=== PATIENT | female | born 1980 | race Caucasian/White ===

== ENCOUNTER 2021-06-02 00:16 | Emergency (ER) | payer MEDICAID, SELFPAY ==
[2021-06-02 00:21] VITALS: BP 125/63; PULSE 86; RESP 16; TEMP 36.6; O2SAT 100; BMI 22.1
--- NOTE | 2021-06-02 00:46 | ED.HA ---
HPI - Headache General Chief Complaint: Headache Stated Complaint: Headache/Nausea Time Seen by Provider: 06/02/21 00:30 Source: patient Mode of arrival: ambulatory Limitations: no limitations History of Present Illness HPI Narrative: Patient comes to emergency room complaining of a migraine headache. Patient states she has been diagnosed with migraines before. Patient denies any visual changes, complaining of nausea and vomiting, no neck pain, no chest pain or shortness of breath. Patient states that she did not take any medication for headache prior to arrival. It started approximately 8 hours ago. Related Data Previous Rx's Medication Instructions Recorded ketorolac 10 mg tablet 10 mg PO TID PRN 5 Days #10 tab 06/02/21 metoclopramide HCl 5 mg tablet 5 mg PO DAILY PRN #10 tab 06/02/21 (Reglan) Allergies Allergy/AdvReac Type Severity Reaction Status Date / Time latex [Latex] Allergy Unknown HIVES Unverified 03/17/20 15:49 Review of Systems Review of Systems: Constitutional : No Weight loss, No Fever, No Chills, No Night Sweats, No Fatigue, No Malaise ENT/Mouth : No Hearing loss, No Ear Pain, No Nasal Congestion, No Sinus Pain, No Hoarseness, No sore throat, No Rhinorrhea, No Swallowing Difficulty, complaining of photophobia Eyes: No Eye Pain, No Swelling, No Redness, No Foreign Body, No Discharge, No Vision Changes Cardiovascular : No Chest Pain, No SOB, No Dyspnea on Exertion, No Orthopnea, No Edema, No Palpitations Respiratory : No Cough, No Sputum, No Wheezing, No Smoke Exposure, No Dyspnea Gastrointestinal : Complaining of nausea and vomiting, No Diarrhea, No Constipation, No abdominal Pain, No Hematochezia, No Melena Genitourinary : no irregular bleeding, No Dysuria, No Urinary Frequency, No Hematuria, No Urinary Incontinence, No Urgency, No Flank Pain, No Urinary Flow Changes, No Hesitancy Musculoskeletal : No joint pain, No Myalgias, No Joint Swelling Skin : No Skin Lesions, No rash Neuro : No Weakness, No Numbness, No Paresthesias, No Loss of Consciousness, No Dizziness, complaining of a migraine headache Psych : No Anxiety/Panic, No Depression, No SI/HI/AH/VH, No Social Issues, Heme/Lymph: No Bruising, No Bleeding,No Lymphadenopathy Endocrine : No Polyuria, No Polydipsia, No Temperature Intolerance [facility] Past Medical History Medical History (Updated 06/02/21 @ 01:37 by Cherry Fisher MD) Migraine headache Social History Social History Advance Directives: No Advance Directives Information Provided: No Patient : No Physical Exam Vital Signs: Vital Signs: Last Vital Signs Temp 97.8 F 06/02/21 00:21 Pulse 86 06/02/21 00:21 Resp 16 06/02/21 00:21 BP 125/63 06/02/21 00:21 Pulse Ox 100 06/02/21 00:21 BMI result Body Mass Index 22.1 Const: Other: Appearance: Alert. Oriented X3. Seems uncomfortable Eyes: Pupils equal, round and reactive to light. Patient has photophobia ENT: Pharynx normal. Neck: Normal inspection. Neck supple. No lymph nodes noted. No crepitus CVS: Normal heart rate and rhythm. Pulses normal. Normal S1 and S2 Respiratory: No respiratory distress. Breath sounds normal. No Wheezing. No rales Abdomen: Soft and nontender. No rigidity. No distention. good BS x4 Skin: Skin warm and dry. Normal skin color. Normal skin turgor. Extremities: No lower extremity edema. No Lacerations. No Rash Neuro: Oriented X 3. No motor deficit. No sensory deficit. Moving all extermities. No slurred speech. Course Course Course Narrative: After IV fluids, Toradol, Benadryl and Reglan, patient states that she feels much better. Patient states that her headache is still present but is now 3 to 4/10, patient is no longer nauseous. Patient was given 1 additional dose of sumatriptan. Discharge Plan Discharge Clinical Impression: Migraine headache Qualifiers: Migraine type: without aura Status migrainosus presence: without status migrainosus Intractability: not intractable Qualified Code(s): G43.009 - Migraine without aura, not intractable, without status migrainosus Patient Disposition: Home, Self-Care Instructions: Migraine Headache (ED) Additional Instructions: Please follow-up with your primary care physician tomorrow. If you have any worsening or new symptoms, please return to the emergency room or call 911 Prescriptions: New ketorolac 10 mg tablet 10 mg PO TID PRN (Reason: pain) 5 Days Qty: 10 RF: 0 metoclopramide HCl [Reglan] 5 mg tablet 5 mg PO DAILY PRN (Reason: nausea and vomiting) Qty: 10 RF: 0
[2021-06-02] MEDS: Metoclopramide HCl 10 MG/2 ML VIAL IVPUSH (00:50)
[2021-06-02] MEDS: 0.9 % Sodium Chloride 1,000 ML 999 ML IVCONT (00:50)
[2021-06-02] MEDS: diphenhydrAMINE HCL 50 MG/ML VIAL IVPUSH (00:50)
[2021-06-02] MEDS: Ketorolac Tromethamine 30 MG/ML VIAL IVPUSH (00:50)
[2021-06-02] MEDS: SUMAtriptan succinate 100 MG TABLET PO (02:11)
--- NOTE | 2021-06-02 02:12 | PC.NURSE ---
I assumed care of the pt upon her arrival to bed 5 from the waiting room. At that time she complained of severe migraine HUMPHREY, nausea, vomiting and photosensitivity x 2 days. She states she has a Hx significant for Migraine HUMPHREY. on arrival she is blocking her face from the light with flat affect and 10/10 head pain. Shortly after arrival to bed 5 MD to bedside and I obtained IV access. IVF's and ordered meds were administered and, at this time, Domonique admits to significant relief from her migraine - pain down to 4 from 10/10. She is now calm, cooperative, eyes open, no longer with a flat affect. Discharged at this time. SHe verbalizes an understanding of all DC orders and ambulated out of the ED independently and with steady gait. Prior to DC we reviewed proper uses and indications for PO Toradol and Reglan and the pt verbalized an understanding.
== END 2021-06-02 02:16 | disposition home or self-care (01) ==
PROVIDERS: Emergency Provider Emergency Medicine
DX: G43.009 Migraine without aura, not intractable, without status migrainosus (principal)
CPT/HCPCS: 96361; 96374; 96375; 99284; J1200; J1885; J2765

== ENCOUNTER 2022-10-19 01:14 | Emergency (ER) | payer OTHER, SELFPAY ==
[2022-10-19 01:34] VITALS: BP 94/67; PULSE 74; RESP 16; TEMP 36.7; O2SAT 100; BMI 21.5
[2022-10-19 01:38] LABS: MANUAL DIFF FLAG NO
[2022-10-19 01:39] LABS: Basophils Absolute Auto 0.1 X10*3/uL (0.0-0.2); Basophils Percent Auto 0.5 % (0-2); Eosinophils Absolute Auto 0.1 X10*3/uL (0.0-0.4); Hematocrit 40.4 % (37.0-47.0); Hemoglobin 12.5 g/dl (12.0-16.0); Imm Gran Abs Auto 0.03 X10*3/uL (0.00-0.03); Imm Gran Pct Auto 0.3 % (0.0-0.4); Lymphocytes Absolute Auto 1.7 X10*3/uL (1.2-4.9); Lymphocytes Percent Auto 15.9 % (20-40); Mean Corpuscular HGB Conc 30.9 g/dl (31.0-35.0); Mean Corpuscular Hemoglobin 25.6 pg (27.0-33.0); Mean Corpuscular Volume 82.6 fL (80.0-98.0); Mean Platelet Volume 12.2 fL (9.4-12.3); Monocytes Absolute Auto 0.4 X10*3/uL (0.1-1.2); Monocytes Percent Auto 4.2 % (2-11); Neutrophils Absolute Auto 8.1 x10*3/uL (2.0-8.3); Neutrophils Percent Auto 78.1 % (45-73); Platelet Count 274 X10*3/uL (160-400); Red Blood Count 4.89 X10*6/uL (4.20-5.50); Red Cell Distribution Width 14.5 % (11.0-16.0); White Blood Count 10.4 X10*3/uL (4.8-10.8)
--- NOTE | 2022-10-19 01:46 | ED.HA ---
HPI - Headache General Chief Complaint: Headache Stated Complaint: Migraine/ Vomiting Time Seen by Provider: 10/19/22 01:46 Source: patient Mode of arrival: ambulatory Limitations: no limitations History of Present Illness HPI Narrative: History of recurrent headaches with history of migraines not seen neurologist takes Tylenol/Motrin for headache comes here for severe headache for last few days without worst last night was still open as behind the eyes and the back of the head severe nausea vomiting and for sensitivities similar to that in the past no fever or chills no neck pain Related Data Previous Rx's Medication Instructions Recorded ketorolac 10 mg tablet 10 mg PO TID PRN pain 5 days #10 06/02/21 tabs metoclopramide HCl 5 mg tablet 5 mg PO DAILY PRN nausea and 06/02/21 (Reglan) vomiting #10 tabs sfitrrskyu-fselpprexmopy-cantxgnt 1 cap PO Q6H PRN headache #20 caps 10/19/22 50 mg-300 mg-40 mg capsule (Fioricet) ondansetron 4 mg disintegrating 4 mg PO Q6-8H PRN nausea and 10/19/22 tablet vomiting #7 tabs sumatriptan succinate 50 mg tablet 50 mg PO Q2H PRN migraine headache 10/19/22 (Imitrex) #10 tabs Allergies Allergy/AdvReac Type Severity Reaction Status Date / Time latex [Latex] Allergy Unknown HIVES Verified 10/19/22 02:05 Review of Systems Review of Systems: Yes all other systems are reviewed and are negative PMFSH Past Medical History Medical History Migraine headache Social History Social History Alcohol intake: never Smoked in Last 30 Days: No Use of substances other than those prescribed or required for medical reasons: No Any prior treatment program specific to substance use: No Advance Directives: No Advance Directives Information Provided: Yes Patient : No Physical Exam Vital Signs: Vital Signs: Last Vital Signs Temp 98.1 F 10/19/22 01:34 Pulse 65 10/19/22 03:52 Resp 16 10/19/22 03:52 BP 119/50 L 10/19/22 03:52 Pulse Ox 100 10/19/22 03:52 O2 Del Method Room Air 10/19/22 03:52 BMI result Body Mass Index 21.5 Appearance: Alert. Oriented X3. No acute distress. Eyes: PERRLA, No Nystagmus ENT: Pharynx normal. Oral Mucosa moist no temporal artery tenderness Neck: Normal inspection. Neck supple. CVS: Normal heart rate and rhythm. Pulses normal. Respiratory: No respiratory distress. Equal air entry bilateral, no wheezing/rales/rhonchi Abdomen: Soft and nontender. Bowel sounds are present, no mass palpable, no CVA tenderness Skin: Skin warm and dry. Normal skin color. Normal skin turgor. Extremities: No lower extremity edema. No calf tenderness Neuro: Oriented X 3. No motor deficit. No sensory deficit.No cerebellar signs , cranial nerves II-XII intact Medications Administered Discontinued Medications Generic Name Dose Route Start Last Admin Trade Name Freq PRN Reason Stop Dose Admin Acetaminophen/Butalbital/Caffeine 1 tab 10/19/22 01:55 10/19/22 02:43 Butalb/Acetamin/Caff 50/325/40 Tablet PO 10/19/22 01:56 1 tab ONCE ONE Administration Ondansetron HCl 4 mg 10/19/22 01:55 10/19/22 02:43 Ondansetron Odt 4 Mg Tab.Rapdis TRANSLINGU 10/19/22 01:56 4 mg ONCE ONE Administration Sumatriptan Succinate 6 mg 10/19/22 01:55 10/19/22 02:43 Sumatriptan Succinate 6 Mg/0.5 Ml Vial SUBCUT 10/19/22 01:56 6 mg ONCE ONE Administration Medical Decision Making Medical Decision Making [facility] Narrative: Patient migraine headaches responded to Imitrex Fioricet and Zofran feeling much better now will discharge patient home on Fioricet and Imitrex Lab Data 10/19/22 01:33 10/19/22 01:33 Labs: Lab Results 10/19/22 10/19/22 Range/Units 01:33 01:33 WBC 10.4 (4.8-10.8) X10*3/uL RBC 4.89 (4.20-5.50) X10*6/uL Hgb 12.5 (12.0-16.0) g/dl Hct 40.4 (37.0-47.0) % MCV 82.6 (80.0-98.0) fL MCH 25.6 L (27.0-33.0) pg MCHC 30.9 L (31.0-35.0) g/dl RDW 14.5 (11.0-16.0) % Plt Count 274 (160-400) X10*3/uL MPV 12.2 (9.4-12.3) fL Immature Gran % (Auto) 0.3 (0.0-0.4) % Neut % (Auto) 78.1 H (45-73) % Lymph % (Auto) 15.9 L (20-40) % [place] % (Auto) 4.2 (2-11) % Eos % (Auto) 1.0 (0-4) % Baso % (Auto) 0.5 (0-2) % Lymph # (Auto) 1.7 (1.2-4.9) X10*3/uL [place] # (Auto) 0.4 (0.1-1.2) X10*3/uL Eos # (Auto) 0.1 (0.0-0.4) X10*3/uL Baso # (Auto) 0.1 (0.0-0.2) X10*3/uL Abs Immat Gran (auto) 0.03 (0.00-0.03) X10*3/uL Absolute Neuts (auto) 8.1 (2.0-8.3) x10*3/uL Absolute Nucleated RBC 0.000 (0.0-0.012) X10*3/uL Nucleated RBC % (auto) 0.0 (0.0-0.2) /100WBC Sodium 140 (135-145) mmol/L Potassium 4.0 (3.3-5.1) mmol/L Chloride 106 (96-108) mmol/L Carbon Dioxide 22 (22-29) mmol/L Anion Gap 16 (12-20) BUN 7 L (9-16) mg/dL Creatinine 0.77 (0.5-1.4) mg/dL Estim Creat Clear Calc 75.2 Estimated GFR > 60 Random Glucose 118 H (60-115) mg/dL Calcium 9.7 (8.4-10.2) mg/dL Total Bilirubin 0.5 (0.0-1.0) mg/dL AST 13 (5-31) U/L ALT 8 (0-31) U/L Alkaline Phosphatase 58 (39-117) U/L Total Protein 7.0 (6.5-8.0) g/dL Albumin 4.3 (3.5-5.0) g/dL Discharge Plan Discharge Clinical Impression: Migraine headache Patient Disposition: Home, Self-Care Instructions: Migraine Headache (ED) Additional Instructions: Take Imitrex as prescribed Fioricet and Zofran as needed Follow with PCP Prescriptions: New sumatriptan succinate [Imitrex] 50 mg tablet 50 mg PO Q2H PRN (Reason: migraine headache) Qty: 10 0RF Rx Instructions: do not exceed 2 doses per 24 hrs ondansetron 4 mg tablet,disintegrating 4 mg PO Q6-8H PRN (Reason: nausea and vomiting) Qty: 7 0RF ccpanhcwgp-utticteruzhty-ruwb [Fioricet] 50-300-40 mg capsule 1 cap PO Q6H PRN (Reason: headache) Qty: 20 0RF No Action ketorolac 10 mg tablet 10 mg PO TID PRN (Reason: pain) 5 Days Qty: 10 0RF Rx Instructions: Do not use this medication with ibuprofen, only use Tylenol if needed metoclopramide HCl [Reglan] 5 mg tablet 5 mg PO DAILY PRN (Reason: nausea and vomiting) Qty: 10 0RF Rx Instructions: Use together with Toradol Interventions: ED Discharge Assessment Last Done: 10/19/22 05:27 Discharge Date/Time: 10/19/22 05:28
[2022-10-19 02:16] LABS: Alanine Aminotransferase 8 U/L (0-31); Albumin Level 4.3 g/dL (3.5-5.0); Alkaline Phosphatase 58 U/L (39-117); Anion Gap 16 (12-20); Aspartate Amino Transferase 13 U/L (5-31); Bilirubin Total 0.5 mg/dL (0.0-1.0); Blood Urea Nitrogen 7 mg/dL (9-16); Calcium 9.7 mg/dL (8.4-10.2); Carbon Dioxide 22 mmol/L (22-29); Chloride 106 mmol/L (96-108); Creatinine Clr Calc Pharmacy 75.2; Estimated Glomerular Filt Rate > 60; Glucose Random 118 mg/dL (60-115); Sodium 140 mmol/L (135-145)
[2022-10-19] MEDS: SUMAtriptan succinate 6 MG/0.5 ML VIAL SUBCUT (02:43)
[2022-10-19] MEDS: Ondansetron ODT 4 MG TAB.RAPDIS TRANSLINGU (02:43)
[2022-10-19] MEDS: Butalb/Acetamin/Caff 50/325/40 TABLET 1 TAB PO (02:43)
--- NOTE | 2022-10-19 02:47 | PC.NURSE ---
pt tolerated the SubQ injection well, no signs of infection at injection site, no swelling, redness or interruption in the skin.
[2022-10-19 03:52] VITALS: BP 119/50; PULSE 65; RESP 16; O2SAT 100
== END 2022-10-19 05:28 | disposition home or self-care (01) ==
PROVIDERS: Emergency Provider Internal Medicine
DX: G43.909 Migraine, unspecified, not intractable, without status migrainosus (principal); Z79.899 Other long term (current) drug therapy
CPT/HCPCS: 36415; 80053; 85025; 96372; 99284; J3030

== ENCOUNTER 2024-12-10 19:20 | Emergency (ER) | payer MEDICAID, SELFPAY ==
[2024-12-10 19:23] VITALS: BP 138/75; PULSE 87; RESP 17; TEMP 37.1; O2SAT 100; BMI 21.4
--- NOTE | 2024-12-10 19:24 | ED_ITS ---
HPI - General Adult General Chief complaint: Headache Stated complaint: migraine, vomiting Time Seen by Provider: 12/10/24 20:22 Source: patient Mode of arrival: ambulatory Limitations: no limitations History of Present Illness ED Provider: aniya salinas np HPI narrative: Patient is a 44-year-old female who presents emergency department for evaluation. She reports onset of a right-sided headache approximately 6 hours prior to arrival to emergency department this progressively worsening. She has a history of migraine headaches that have presented similarly to this. She denies any acute change from her typical migraine pattern. Has associated photophobia. Has had a few episodes of vomiting which is not atypical for her. She attempted to take her sumatriptan twice today but ultimately ended up throwing up immediately after. She denies any recent head injury. She denies associated dizziness, lightheadedness, neck pain, neck stiffness, chest pain, shortness of breath, numbness or tingling of the extremities. Denies use of anticoagulants or known coagulation disorders. Related Data Previous Rx's ?Medication ?Instructions ?Recorded ketorolac 10 mg tablet 10 mg PO TID PRN pain 5 days #10 06/02/21 tabs metoclopramide HCl 5 mg tablet 5 mg PO DAILY PRN nausea and 06/02/21 (Reglan) vomiting #10 tabs thxhqmtykr-gvynyitmrybyv-cionfgil 1 cap PO Q6H PRN headache #20 caps 10/19/22 50 mg-300 mg-40 mg capsule (Fioricet) ondansetron 4 mg disintegrating 4 mg PO Q6-8H PRN nausea and 10/19/22 tablet vomiting #7 tabs sumatriptan succinate 50 mg tablet 50 mg PO Q2H PRN migraine headache 10/19/22 (Imitrex) #10 tabs Allergies Allergy/AdvReac Type Severity Reaction Status Date / Time latex [Latex] Allergy Unknown HIVES Verified 12/10/24 19:25 Review of Systems 2 Review of Systems: Yes all other systems are reviewed and are negative PMFSH Past Medical History Attestation statement: The following information was validated with the patient. Source: old records reviewed Medical History Migraine headache Social History Social History Alcohol intake: never Smoked in Last 30 Days: No Use of substances other than those prescribed or required for medical reasons: No Advance Directives: No Advance Directives Information Provided: No Do you have a plan to hurt others: No Plan Physical Exam ED Vital Signs: Vital Signs - 24 hr 12/10/24 19:23 12/10/24 21:00 12/10/24 21:53 Temperature 98.7 F 98.1 F 98.1 F Pulse Rate 87 72 69 Respiratory Rate 17 16 16 Blood Pressure 138/75 120/64 125/56 L Pulse Oximetry 100 98 100 Oxygen Delivery Method Room Air Room Air Room Air BMI result Body Mass Index 21.4 Appearance: Alert.?Oriented to person, place and time. No acute distress.?Normal affect. Eyes: Pupils equal, round and reactive to light.? EOMI. No nystagmus. ENT: Pharynx normal.?? Neck: Normal inspection.? Neck supple.?? CVS: Heart sounds normal. Normal heart rate and rhythm.? Pulses normal.?? Respiratory: No respiratory distress.? Lung sounds clear to auscultation bilaterally?? Abdomen: Soft and non-tender. Normoactive bowel sounds. ? Skin: Skin warm and dry.? Normal skin color.? Extremities: No lower extremity edema.? Neuro: Moves all extremities spontaneously. Sensation intact bilaterally. CN II- XII intact. No focal neuro deficits. Ambulates with normal steady gait. Course Course Course Narrative: RME, this is a rapid medical exam performed by Dar Jones please refer to primary provider for complete H&P- 44-year-old female presents for evaluation of the headache that started 6 hours ago and has been getting progressively worse. She reports a history of migraines in his been having vomiting. Medications Administered Discontinued Medications Generic Name Dose Route Start Last Admin Trade Name Freq PRN Reason Stop Dose Admin Sumatriptan Succinate 6 mg 12/10/24 21:39 12/10/24 21:49 Sumatriptan Succinate 6 Mg/0.5 Ml Vial SUBCUT 12/10/24 21:40 6 mg ONCE ONE Administration Medical Decision Making Medical Decision Making [facility] Narrative: Patient is a 44-year-old female with past medical history of migraine headaches who presents emergency department for evaluation of a migraine with onset today. Has associated nausea/vomiting. At the time my evaluation she denies any nausea she is not amenable to taking antiemetic at this time. She states that sumatriptan in his typically very helpful for her unfortunately she vomited after taking her oral doses. She is amenable to receiving sumatriptan 6 mg subcutaneous injection at this time. The migraine pattern is consistent with her baseline there is no substantial change or no red flag symptoms and she has no focal neurological deficits. No high-risk comorbidities that would warrant indication for emergent head CT at this time. Suspect unlikely to have SDH, SAH, ICH, [employer] mass, meningitis, encephalitis, cervical artery dissection, CVA, GCA, migraine, headache. Symptomatic improvement after receiving sumatriptan 6 mg subcutaneous injection. Feeling stable for discharge at this time. Remains without focal neurological deficits. And with a steady gait. Given strict return precautions. All questions answered Differential Diagnosis Differential Diagnoses: The differential diagnosis associated with the presentation includes (SDH, SAH, ICH, [employer] mass, meningitis, encephalitis, CVA, GCA, migraine, headache) Admission/Observation Consideration of admission/observation: Escalation of care including admission/observation considered Lab Data MDM Lab Attestation statement: I reviewed the patient's lab results. CBC is without leukocytosis, significant anemia, or thrombocytopenia. Electrolyte derangement. No CRUZ. LFTs unremarkable. CRP is normal. HCG is negative. Urinalysis without signs of infection. 12/10/24 19:38 12/10/24 19:38 Labs: Lab Results 12/10/24 12/10/24 Range/Units 19:38 21:51 WBC 10.5 (4.8-10.8) X10*3/uL RBC 4.65 (4.20-5.50) X10*6/uL Hgb 12.0 (12.0-16.0) g/dl Hct 36.9 L (37.0-47.0) % MCV 79.4 L (80.0-98.0) fL MCH 25.8 L (27.0-33.0) pg MCHC 32.5 (31.0-35.0) g/dl RDW 14.6 (11.0-16.0) % Plt Count 217 (160-400) X10*3/uL MPV 11.2 (9.4-12.3) fL Immature Gran % (Auto) 0.2 (0.0-0.4) % Neut % (Auto) 77.9 H (45-73) % Lymph % (Auto) 16.3 L (20-40) % [place] % (Auto) 4.8 (2-11) % Eos % (Auto) 0.5 (0-4) % Baso % (Auto) 0.3 (0-2) % Lymph # (Auto) 1.7 (1.2-4.9) X10*3/uL [place] # (Auto) 0.5 (0.1-1.2) X10*3/uL Eos # (Auto) 0.1 (0.0-0.4) X10*3/uL Baso # (Auto) 0.0 (0.0-0.2) X10*3/uL Abs Immat Gran (auto) 0.02 (0.00-0.03) X10*3/uL Absolute Neuts (auto) 8.2 (2.0-8.3) x10*3/uL Absolute Nucleated RBC 0.000 (0.0-0.012) X10*3/uL Nucleated RBC % (auto) 0.0 (0.0-0.2) /100WBC ESR 8 (0-20) MM/HR Sodium 137 (135-145) mmol/L Potassium 4.2 (3.3-5.1) mmol/L Chloride 106 (96-108) mmol/L Carbon Dioxide 23 (22-29) mmol/L Anion Gap 12 (12-20) BUN 8 L (9-16) mg/dL Creatinine 0.64 (0.5-1.4) mg/dL Estim Creat Clear Calc 88.7 Estimated GFR > 60 Random Glucose 111 (60-115) mg/dL Calcium 10.0 (8.4-10.2) mg/dL Total Bilirubin 0.5 (0.0-1.0) mg/dL Direct Bilirubin 0.2 (0.0-0.5) mg/dL AST 16 (5-31) U/L ALT 18 (0-31) U/L Alkaline Phosphatase 58 (39-117) U/L C-Reactive Protein < 0.04 (< or = 0.50) mg/dL Total Protein 7.0 (6.5-8.0) g/dL Albumin 4.5 (3.5-5.0) g/dL Lipase 13 (8-78) U/L Beta HCG, Quant < 2 mIU/mL Urine Color Yellow Urine Appearance Clear Urine pH 8.5 (5.0-9.0) Ur Specific [place] <= 1.005 (1.005-1.025) Urine Protein Negative (Neg-Trace) mg/dL Urine Glucose (UA) Negative (Negative) mg/dL Urine Ketones 15 (Negative) mg/dL Urine Blood Negative (Negative) Urine Nitrite Negative (Negative) Ur Leukocyte Esterase Negative (Negative) Urine RBC 0-2 (0-2) /HPF Urine WBC 0-5 (0-5) /HPF Ur Squamous Epith Cells 0-2 (0-2) /HPF Urine Bacteria Trace (None Seen) Hyaline Casts 0-2 (0-2) /LPF External Record Review External record reviewed: Outpatient record Prescription Management I considered prescription management with: Pain Medication Chronic Conditions Patient?s care impacted by: Other (See narrative above) Discharge Plan Discharge Clinical Impression: Migraine headache Patient Disposition: Home, Self-Care Instructions: Migraine Headache (ED) Additional Instructions: You were seen in the emergency department for evaluation of migraine headache consistent with your prior migraines. As you were unable to tolerate your sumatriptan at home you were given sumatriptan injection in the emergency department with improvement Please follow-up with your primary care doctor. You may return back to emergency department with any new or worsening symptoms or concerns. Prescriptions: No Action ketorolac 10 mg tablet 10 mg PO TID PRN (Reason: pain) 5 Days Qty: 10 0RF Rx Instructions: Do not use this medication with ibuprofen, only use Tylenol if needed metoclopramide HCl [Reglan] 5 mg tablet 5 mg PO DAILY PRN (Reason: nausea and vomiting) Qty: 10 0RF Rx Instructions: Use together with Toradol sumatriptan succinate [Imitrex] 50 mg tablet 50 mg PO Q2H PRN (Reason: migraine headache) Qty: 10 0RF Rx Instructions: do not exceed 2 doses per 24 hrs ondansetron 4 mg tablet,disintegrating 4 mg PO Q6-8H PRN (Reason: nausea and vomiting) Qty: 7 0RF dvhozyvukz-mdgwjmdtctrpt-qibf [Fioricet] 50-300-40 mg capsule 1 cap PO Q6H PRN (Reason: headache) Qty: 20 0RF Referrals: [facility] [Primary Care Provider] - Print Language: Tajik
[2024-12-10 19:41] LABS: MANUAL DIFF FLAG NO
[2024-12-10 19:43] LABS: Basophils Percent Auto 0.3 % (0-2); Eosinophils Absolute Auto 0.1 X10*3/uL (0.0-0.4); Eosinophils Percent Auto 0.5 % (0-4); Hematocrit 36.9 % (37.0-47.0); Imm Gran Abs Auto 0.02 X10*3/uL (0.00-0.03); Imm Gran Pct Auto 0.2 % (0.0-0.4); Lymphocytes Absolute Auto 1.7 X10*3/uL (1.2-4.9); Lymphocytes Percent Auto 16.3 % (20-40); Mean Corpuscular HGB Conc 32.5 g/dl (31.0-35.0); Mean Corpuscular Hemoglobin 25.8 pg (27.0-33.0); Mean Corpuscular Volume 79.4 fL (80.0-98.0); Mean Platelet Volume 11.2 fL (9.4-12.3); Monocytes Absolute Auto 0.5 X10*3/uL (0.1-1.2); Monocytes Percent Auto 4.8 % (2-11); Neutrophils Absolute Auto 8.2 x10*3/uL (2.0-8.3); Neutrophils Percent Auto 77.9 % (45-73); Platelet Count 217 X10*3/uL (160-400); Red Blood Count 4.65 X10*6/uL (4.20-5.50); Red Cell Distribution Width 14.6 % (11.0-16.0); White Blood Count 10.5 X10*3/uL (4.8-10.8)
[2024-12-10 20:03] LABS: Alanine Aminotransferase 18 U/L (0-31); Albumin Level 4.5 g/dL (3.5-5.0); Alkaline Phosphatase 58 U/L (39-117); Anion Gap 12 (12-20); Aspartate Amino Transferase 16 U/L (5-31); Bilirubin Direct 0.2 mg/dL (0.0-0.5); Bilirubin Total 0.5 mg/dL (0.0-1.0); Blood Urea Nitrogen 8 mg/dL (9-16); C Reactive Protein < 0.04 mg/dL (< or = 0.50); Carbon Dioxide 23 mmol/L (22-29); Chloride 106 mmol/L (96-108); Creatinine Clr Calc Pharmacy 88.7; Estimated Glomerular Filt Rate > 60; Glucose Random 111 mg/dL (60-115); Lipase 13 U/L (8-78); Potassium 4.2 mmol/L (3.3-5.1); Sodium 137 mmol/L (135-145)
[2024-12-10 20:05] LABS: HCG Quantitative < 2 mIU/mL
--- NOTE | 2024-12-10 20:41 | PC.NURSE ---
Pt a&ox4, no signs of distress Pt ambulated to the bed with a sready gait Pt reports 9/10 headache w/ onset of 1300, currently denies n/v Plan of care ongoing.
[2024-12-10 21:00] VITALS: BP 120/64; PULSE 72; RESP 16; TEMP 36.7; O2SAT 98
[2024-12-10 21:36] LABS: Erythrocyte Sedimentation Rate 8 MM/HR (0-20)
[2024-12-10] MEDS: SUMAtriptan succinate 6 MG/0.5 ML VIAL SUBCUT (21:49)
--- NOTE | 2024-12-10 21:52 | PC.NURSE ---
Pt medicated per [facility] Plan of care ongoing.
[2024-12-10 21:53] VITALS: BP 125/56; PULSE 69; RESP 16; TEMP 36.7; O2SAT 100
--- NOTE | 2024-12-10 21:55 | MHC.EDTECH ---
2200 rounding done ,vitals taken ,urine sample collected and sent to lab .
[2024-12-10 22:03] LABS: Appearance Urine Clear; Color Urine Yellow; Glucose Urine UA Negative (Negative); Leukocyte Esterase Urine Negative (Negative); Nitrite Urine Negative (Negative); PH 8.5 (5.0-9.0); Specific Gravity - Urine <= 1.005 (1.005-1.025); Urine Blood Negative (Negative); Urine Ketones 15 mg/dL (Negative); Urine Protein Negative (Neg-Trace)
[2024-12-10 22:05] LABS: Bacteria Urine Trace (None Seen); Hyaline Casts Urine 0-2 /LPF (0-2); RBC Urine 0-2 /HPF (0-2); Squamous Epithelial Cell Urine 0-2 /HPF (0-2); WBC Urine 0-5 /HPF (0-5)
--- NOTE | 2024-12-10 22:25 | PC.NURSE ---
Pt requested and given ice water Plan of care ongoing.
[2024-12-10 23:49] VITALS: BP 125/56; PULSE 69; RESP 16; TEMP 36.7; O2SAT 100
== END 2024-12-10 23:51 | disposition home or self-care (01) ==
PROVIDERS: Physician Assistant; Emergency Provider Emergency Medicine
DX: G43.909 Migraine, unspecified, not intractable, without status migrainosus (principal); H53.143 Visual discomfort, bilateral; R11.10 Vomiting, unspecified; R10.2 Pelvic and perineal pain; Z79.899 Other long term (current) drug therapy
CPT/HCPCS: 36415; 80048; 80076; 81001; 83690; 84702; 85025; 85652; 86140; 96372; 99284; J3030